=== PATIENT | male | born 1980 | race Caucasian/White ===

== ENCOUNTER 2018-04-29 22:10 | Emergency (ER) | payer BC, OTHER ==
[2018-04-29 22:17] VITALS: BMI 27.6
--- NOTE | 2018-04-29 23:23 | PDOC ---
History of Present Illness - General Chief Complaint: Diarrhea Stated Complaint: DIARRHEA Time Seen by Provider: 04/29/18 23:01 History Source: Patient - History of Present Illness Initial Comments: 04/29/18 23:16 Patient is a 37-year-old male with no past medical history here with complaints of abdominal pain, fever and diarrhea 4 days. 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 States the next morning he started to have fever and then diarrhea ensued. He states no blood but said the diarrhea is red and occasionally stringy mucus. States he's been trying to eat and hydrate but as soon as he eats he has to have a bowel movement. He has intermittent pain but prior to a bowel movement he has severe pain in his lower abdomen 03/13 and that' s an indication that he has to run to the bathroom. Fever has also been ongoing. Also reports that he eat out every day. He visited this doctor at [facility] on Monday, blood work was done and resulted. He was not given any meds , has follow tomorrow but since the symptoms were worsening came to the hospital for eval. No recent travel. PMD: [facility] PMHX: neg PSOCHx: neg etoh, drug, cig ALL: NKDA GENERAL/CONSTITUTIONAL: [No fever or chills. No weakness. No weight change.] HEAD, EYES, EARS, NOSE AND THROAT: [No change in vision. No ear pain or discharge. No sore throat.] CARDIOVASCULAR: [No chest pain or shortness of breath.] RESPIRATORY: [No cough, wheezing, or hemoptysis.] GASTROINTESTINAL: (+) nausea, (-) vomiting, (+)diarrhea (-) constipation. No rectal bleeding.] GENITOURINARY: [No dysuria, frequency, or change in urination.] MUSCULOSKELETAL: [No joint or muscle swelling or pain. No neck or back pain.] SKIN AND BREASTS: [No rash or easy bruising.] NEUROLOGIC: [No headache, vertigo, loss of consciousness, or loss of sensation.] PSYCHIATRIC: [No depression or anxiety.] ENDOCRINE: [No increased thirst. No abnormal weight change.] HEMATOLOGIC/LYMPHATIC: [No anemia, easy bleeding, or history of blood clots.] ALLERGIC/IMMUNOLOGIC: [No hives or skin allergy. No latex allergy.] GENERAL: [The patient is awake, alert, and fully oriented, in no acute distress. ] HEAD: [Normal with no signs of trauma.] EYES: [Pupils equal, round and reactive to light, extraocular movements intact, sclera anicteric, conjunctiva clear.] ENT: [Ears normal, nares patent, oropharynx clear without exudates. Moist mucous membranes.] NECK: [Normal range of motion, supple without lymphadenopathy, JVD, or masses.] LUNGS: [Breath sounds equal, clear to auscultation bilaterally. No wheezes, and no crackles.] HEART: [Regular rate and rhythm, normal S1 and S2 without murmur, rub.] ABDOMEN: [Soft, (+) tenderness generalized but most in the lower abd, normoactive bowel sounds. No guarding, no rebound. No masses.] EXTREMITIES: [Normal range of motion, no edema. No clubbing or cyanosis. No cords, erythema, or tenderness.] NEUROLOGICAL: [Cranial nerves II through XII grossly intact. Normal speech, normal gait.] PSYCH: [Normal mood, normal affect.] SKIN: [Warm, Dry, normal turgor, no rashes or lesions noted.] Past History - Past Medical History Allergies/Adverse Reactions: Allergies Allergy/AdvReac Type Severity Reaction Status Date / Time shrimp Allergy Intermediate Verified 04/30/18 01:02 Home Medications: Ambulatory Orders Ciprofloxacin HCl [Cipro] 500 mg PO BID #20 tablet 04/30/18 metroNIDAZOLE [Flagyl -] 500 mg PO TID #30 tablet 04/30/18 COPD: No GI Disorders: Yes (IBS) - Suicide/Smoking/Psychosocial Hx Smoking History: Never smoked *Physical Exam - Vital Signs Last Vital Signs Temp Pulse Resp BP Pulse Ox 98.9 F 75 18 133/83 98 04/29/18 22:14 04/29/18 22:14 04/29/18 22:14 04/29/18 22:14 04/29/18 22:14 ED Treatment Course - LABORATORY CBC & Chemistry Diagram: 04/29/18 23:44 04/29/18 23:44 Medical Decision Making - Medical Decision Making 04/29/18 23:16 Patient is a 37-year-old male with no past medical history here with complaints of abdominal pain, fever and diarrhea 4 days. Symptoms consistent with colitis , vs diverticulitis, labs, CTAP IVF, pain meds reassess patient decline Morphine 04/30/18 04:51 Patient Full Name: LISSY BECKMAN Patient Accession No: [id number] Patient : [id number] Reason for Exam: ABD PAIN Referring Physician: Patient Name: KARUNA YUAN THIS IS A PRELIMINARY REPORT FROM [facility] DATE OF SERVICE: 2018-04-30 03:44:03 IMAGES: [id number] EXAM: ABDOMEN \T\ PELVIS CT W/O CONTR HISTORY: Abdominal pain COMPARISON: None. FINDINGS: Positive for acute colitis. There is abnormal wall thickening and inflammation involving the transverse colon, the left colon, sigmoid and rectum. There is also wall thickening involving the cecum (the appendix is also borderline thickened but this may be part of the generalized inflammatory process). Mild wall thickening noted in the right colon. No bowel obstruction, free air, or free fluid. No urinary tract stone or obstruction. No abscess. No acute abnormalities of the liver, gallbladder, spleen, pancreas, or adrenal glands. Osseous structures are intact prior lumbar spine surgery. Individualized dose optimization techniques were used for this CT. THIS DOCUMENT HAS BEEN ELECTRONICALLY SIGNED Arias Lopez MD 04/30/2018 04:11 EST M.D. Please call [facility] [phone] ([phone]) with questions. INTERPRETING RADIOLOGIST: Arias Lopez MD Electronically Signed: Apr 30, 2018 04:12AM ED ct noted will admit, levjarod and yl Case d/w Hospitalist for admission, states does not meet criteria for admission. will discharge. I discussed the physical exam findings, ancillary test results and final diagnoses with the patient. I answered all of the patient's questions. The patient was satisfied with the care received and felt comfortable with the discharge plan and treatment plan. The Patient agrees to follow up with the primary care physician within 24-72 hours. *DC/Admit/Observation/Transfer Diagnosis at time of Disposition: Colitis - Discharge Dispostion Disposition: HOME Condition at time of disposition: Stable - Prescriptions Prescriptions: Ciprofloxacin HCl [Cipro] 500 mg PO BID #20 tablet metroNIDAZOLE [Flagyl -] 500 mg PO TID #30 tablet - Referrals Referrals: Tej Tapia MD [Primary Care Provider] - - Patient Instructions Printed Discharge Instructions: DI for Colitis Additional Instructions: Your Discharge Instructions: You must call primary care physician within 24 hours to arrange follow-up. Return to the Emergency Department with any new, persistent or worsening symptoms, for fever, chills, SOB, dizziness or any other concerning changes that may occur. He must call back for your C. difficile culture and your stool culture today. If C. difficile is positive then you will need an antibiotic change. You must exercise handwashing precautions after each school. - Post Discharge Activity
[2018-04-29 23:55] LABS: BASO % 0.3 % (0-2.0); EOS % 0.6 % (0-4.5); HEMATOCRIT 44.3 % (35.4-49); HEMOGLOBIN 15.1 GM/dL (11.7-16.9); LYMPH % 23.4 % (8-40); MCH 32.4 pg (25.7-33.7); MCHC 34.1 g/dl (32.0-35.9); MONO % 20.4 % (3.8-10.2); NEUT % 55.3 % (42.8-82.8); PLATELET COUNT 240 K/MM3 (134-434); RBC 4.67 M/mm3 (4.00-5.60); WHITE BLOOD COUNT 6.5 K/mm3 (4.0-10.0)
[2018-04-30 00:15] LABS: ALBUMIN 3.9 g/dl (3.4-5.0); ANION GAP 9 MMOL/L (8-16); BILIRUBIN,TOTAL 0.4 mg/dL (0.2-1.0); BLOOD UREA NITROGEN 8 mg/dL (7-18); CALCIUM 9.1 mg/dL (8.5-10.1); CHLORIDE 102 mmol/L (98-107); CO2 29 mmol/L (21-32); GLUCOSE,RANDOM 101 mg/dL (74-106); POTASSIUM 3.4 mmol/L (3.5-5.1); SGOT/AST 23 U/L (15-37); SGPT/ALT 33 U/L (12-78); SODIUM 140 mmol/L (136-145); TOT PROT 7.7 g/dl (6.4-8.2)
[2018-04-30 00:16] LABS: ALK PHOS 84 U/L (45-117)
[2018-04-30] MEDS ORDERED: morphine CARPU-JECT 4 MG/1 ML DISP.SYRIN IVPUSH ONE (00:54)
[2018-04-30] MEDS ORDERED: POTASSIUM CHLORIDE ORAL LIQUID 20 MEQ/15 ML PO ONE (01:02)
[2018-04-30] MEDS ORDERED: POTASSIUM CHLORIDE TABS 20 MEQ TABLET.ER (FP) PO ONE (01:04)
[2018-04-30] MEDS ORDERED: morphine SULFATE 4 MG/ML VIAL ONE (01:04)
[2018-04-30 01:13] LABS: PLATELET ESTIMATE ADEQUATE
[2018-04-30 05:40] VITALS: BP 131/81; PULSE 77; TEMP 98.4
== END 2018-04-30 06:38 | disposition home or self-care (01) ==
LOC: JER 22:10
PROC: 3E03329 Introduction of Other Anti-infective into Peripheral Vein, Percutaneous Approach (ICD-10-PCS; principal; 2018-04-29)
PROC: 3E03329 Introduction of Other Anti-infective into Peripheral Vein, Percutaneous Approach (ICD-10-PCS; 2018-04-29)
PROC: 3E033NZ Introduction of Analgesics, Hypnotics, Sedatives into Peripheral Vein, Percutaneous Approach (ICD-10-PCS; 2018-04-29)
DX: K52.9 Noninfective gastroenteritis and colitis, unspecified (principal)
CPT/HCPCS: 36415; 74176-TC; 80053; 82272; 85025; 87205; 87324; 87449; 99282-25